=== PATIENT | female | born 1990 | race African-American/Black ===

== ENCOUNTER 2016-08-21 13:54 | Emergency (ER) | payer MEDICAID ==
[~2016-08-21] VITALS: Ht 170.2 cm; Wt 68.0 kg
[2016-08-21] MEDS ORDERED: SODIUM CHLORIDE 0.9% 1,000 ML IV ONE (14:24)
[2016-08-21] MEDS ORDERED: DEXT 5%/LR + PITOCIN 20UNITS/L 1,000 ML IV ONE (14:30)
[2016-08-21 14:54] LABS: BASOPHILS % 0.3 % (0.0-2.0); DIFFERENTIAL COMMENT 0; HEMATOCRIT. 28.7 % (36.0-48.0); HEMOGLOBIN. 9.3 g/dL (12.0-16.0); LYMPHOCYTES % 10.4 % (20.0-50.0); MEAN CORPUSCULAR HEMOGLOBIN 24.4 pg (28.0-32.0); MEAN CORPUSCULAR HGB CONC 32.5 g/dL (31.0-37.0); MEAN CORPUSCULAR VOLUME 74.9 fL (81.0-99.0); MEAN PLATELET VOLUME 8.6 fl (7.4-10.4); NEUTROPHILS % 81.3 % (40.0-76.0); PLATELET 204 x1000/uL (130-400); RED BLOOD CELL COUNT 3.83 mill/uL (4.2-5.4); RED CELL DISTRIBUTION WIDTH 15.6 % (11.6-14.6); WHITE BLOOD COUNT 14.1 x1000/uL (4.5-11.0)
[2016-08-21 15:01] LABS: ANION GAP 14; CALCIUM 8.7 mg/dL (8.5-10.1); CARBON DIOXIDE 24 mEq/L (21-32); CHLORIDE 104 mEq/L (98-107); INDEX HEMOLYSI 1 (1-3); INDEX ICTERIC 1 (1-4); INDEX LIPEMIC 1 (1-3); UREA NITROGEN BLOOD 5 mg/dL (7-21)
[2016-08-21 15:12] LABS: eGFR > 60 mL/min (>60)
[2016-08-21 15:19] LABS: B-HCG QUANTITATIVE 17117 mIU/mL (<3)
[2016-08-21 18:53] VITALS: BP 143/72
== END 2016-08-21 19:32 | disposition home or self-care (01) ==
LOC: ER 14:05 → EDBD 14:05 → ER 19:32
DX: O03.9 Complete or unspecified spontaneous abortion without complication (principal); O99.012 Anemia complicating pregnancy, second trimester; D72.829 Elevated white blood cell count, unspecified; Z3A.19 19 weeks gestation of pregnancy
CPT/HCPCS: 36415; 76801; 76817; 80048; 84702; 85025; 86850; 86900; 86901; 96365; 96366; 99285; J7030; Z7610; J2590